=== PATIENT | male | born 2005 | race Caucasian/White ===

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

== ENCOUNTER 2024-05-16 11:56 | Emergency (ER) | payer MEDICAID, OTHER ==
[~2024-05-16] VITALS: Ht 167.6 cm; Wt 65.5 kg
[~2024-05-16 11:56] MED LIST changes: +ONDA-243 PO; -ONDA4TAB12 PO
[2024-05-16 12:00] VITALS: BP 123/70; PULSE 67; RESP 18; TEMP 97.2; O2SAT 100
[2024-05-16] MEDS ORDERED: CARB15DR91 RIGHT EAR (12:19)
== END 2024-05-16 12:32 | disposition home or self-care (01) ==
LOC: ER 11:57
DX: H61.21 Impacted cerumen, right ear (principal)
CPT/HCPCS: 99282

== ENCOUNTER 2024-06-27 17:42 | Emergency (ER) | payer MEDICAID, OTHER ==
[~2024-06-27] VITALS: Ht 167.6 cm; Wt 65.3 kg
[~2024-06-27 17:42] MED LIST changes: +CARB15DR91 RIGHT EAR
[2024-06-27] MEDS: acetaminophen 325mg tablet PO ONE (17:49)
[2024-06-27] MEDS: normal saline 1000ML IV soln IV ONE (18:49)
[2024-06-27] MEDS: acetaminophen 1,000mg/100ml IV 100 ML IV ONE (18:51)
[2024-06-27] MEDS: ketorolac trometh 15mg/ml vial 15 MG/ML ML IV ONE (18:52)
[2024-06-27 19:21] VITALS: BP 117/58; PULSE 94; RESP 14; O2SAT 97
[2024-06-27 19:26] LABS: STREP A SCREEN NEGATIVE (Neg)
[2024-06-27] MEDS ORDERED: IBUP-862 PO (20:02)
[2024-06-27] MEDS ORDERED: AMOX500C2 PO (20:02)
[2024-06-27 20:21] VITALS: TEMP 100.8
== END 2024-06-27 20:23 | disposition home or self-care (01) ==
LOC: ER 17:43
DX: J03.90 Acute tonsillitis, unspecified (principal); R50.9 Fever, unspecified; Z79.899 Other long term (current) drug therapy; Z20.822 Contact with and (suspected) exposure to COVID-19
CPT/HCPCS: 36415; 71045; 87081; 87811; 87880; 96361; 96374; 99284; J1885; J7030